=== PATIENT | female | born 1995 | race Caucasian/White ===

== ENCOUNTER 2020-05-06 08:42 | Emergency (ER) | payer MEDICAID ==
[~2020-05-06] VITALS: Ht 157.5 cm; Wt 60.2 kg
[2020-05-06 09:06] VITALS: BP 105/74
[2020-05-06] MEDS ORDERED: DOXYCYCLINE 100MG CAPSULE PO STA (09:14)
[2020-05-06] MEDS ORDERED: CefTRIAXone 1000mg IM Kit (w/lidocaine diluent) IM ONE (09:15)
[2020-05-06] MEDS ORDERED: penicillin G benzathine 1.2 million unit/2ml syringe IM ONE (09:15)
[2020-05-06] MEDS ORDERED: DOXY100C43 PO (09:22)
[2020-05-06] MEDS: ketorolac tromethamine 15mg/ml inj. IM ONE ×2 (10:25→11:54)
[2020-05-06 11:15] LABS: URINE HCG NEGATIVE (NEG)
--- NOTE | 2020-05-06 12:06 | NUR ---
PT REFUSED TROADOL.
== END 2020-05-06 12:08 | disposition home or self-care (01) ==
LOC: ER 08:42
DX: Z20.2 Contact with and (suspected) exposure to infections with a predominantly sexual mode of transmission (principal); A51.49 Other secondary syphilitic conditions; F15.90 Other stimulant use, unspecified, uncomplicated; Z79.2 Long term (current) use of antibiotics
CPT/HCPCS: 36415; 81025; 86592; 87491; 87591; 96372; 99284; J0561; J0696; J1885